=== PATIENT | female | born 1965 | race Caucasian/White ===

== ENCOUNTER 2023-09-16 13:45 | Emergency (ER) | payer MEDICARE, SELFPAY ==
[2023-09-16 14:19] VITALS: BP 119/71; PULSE 122; RESP 16; TEMP 37.7; O2SAT 95
--- NOTE | 2023-09-16 15:39 | PC.NURSE ---
Pt name called three times in waiting room with no response.
== END 2023-09-16 16:04 | disposition left against medical advice (07) ==
PROVIDERS: PCP Physician Assistant Medical
DX: M25.561 Pain in right knee (principal)
CPT/HCPCS: 99199

== ENCOUNTER 2024-03-11 13:45 | Outpatient (RCR) | payer MEDICARE, SELFPAY ==
--- NOTE | 2024-01-11 18:52 | PTOPEVAL1 ---
Assessment and note entered by Stella Reilly, PT Evaluation Information Assessment Status Evaluation Diagnosis R53.81, R53.1, Z89.431, R26.9 ICD-10 Condition Codes (PT) M25.561,Pain in left knee M25.562,M25.571,M25.572, R26.9,Weakness R53.1 Subjective Information Pt reports had transmetatarsal amputation to R foot last Mar, can walk on it with a walker only for short distances recently. Able to transfer indep at home, required 1 person assist to get in and out of the car, increased difficulty with stairs at home requiring assistance from and son. States throbbing, burning, achy and increased pressure to bilat ankles and feet, bilat knees. Pt reports wanting to work on her standing balance and walking with therapy to be able to return to indep movements at home. Reported Pain Level Pain Score 9: Self Report Assessment PT Clinical Summary Pt is a 58 yo female who presents to therapy with increased pain to BLEs specifically bilat knees and ankles, underwent transmetatarsal amputation earlier this year with residual weakness resulting to significant loss of mobility, reduced standing balance and tolerance and significant gait impairments. Pt is uses w/c mainly for household mobility at this time, and has been increasingly sedentary since after the surgery. Pt will benefit from skilled PT interventions for education, strengthening stability exercises, flexibility, balance and gait training to improve functional mobility and safe indep transfers and ambulation within her home and in the community using appropriate assistive devices as needed. Plan of Care Interventions Check Out for Orthotic/Pr,Electrical Stimulation, Gait Training,Hot Pack/Cold Pack,Manual Therapy, Neuro Re-education,Patient/Caregiver Education, Therapeutic Activities,Therapeutic Exercise, Ultrasound Other Interventions Taping PT Services Indicated Yes Treatment Frequency and 2x/wk x 10 visits Duration These treatments will address the objective and functional deficits as defined above. The patient will be advanced safely and appropriately in order for the patient to progress towards his/her prior level of function. Additional exercises will be introduced and as well as a comprehensive home exercise program upon discharge, if needed, ?to ensure carryover of functional gains achieved in the clinic. This treatment plan has been reviewed and agreement upon by the patient.
--- NOTE | 2024-01-11 18:52 | OPREHPOC ---
Outpatient Therapy Plan of Care This is a Multidisciplinary Plan of Care that may contain components documented by all disciplines (PT, OT, and ST.) PT Problem 1 PT Problem #1 Knowledge Deficit PT Goal 1 Goal / Goal Update Pt will demo good understanding of diagnosis and prognosis. Pt will perform HEPs to improve core strength, hip stability and BLE strengthening indep Target Visit 8 PT Problem 2 PT Problem #2 Pain PT Goal 1 Goal / Goal Update Pt will report 3/10 at worst to bilat knees and ankles when standing and ambulating with appropriate AD Target Visit 10 PT Problem 3 PT Problem #3 Impaired Balance PT Goal 1 Goal / Goal Update Pt will demo atleast or more score on Tinetti Balance and Gait Assessment to reduce risk for falls while using appropriate AD. Target Visit 10 PT Problem 4 PT Problem #4 Impaired Gait PT Goal 1 Goal / Goal Update Pt will demo improved gait mechanics and gait endurance to at least 50ft. or more using 2WW for safe ambulation within house distances. Target Visit 10
--- NOTE | 2024-03-03 12:56 | PTOPPROG ---
Assessment and note entered by Stella Reilly, PT Progress Information Assessment Status Progress Diagnosis R53.81, R53.1, Z89.431, R26.9 ICD-10 Condition Codes (PT) Pain in right knee M25.561,Pain in left knee M25. 562,Pain in right ankle and joints of right foot M25.571,Pain in left ankle and joints of left foot M25.572,Abnormalities of gait and mobility R26.9, Weakness R53.1 Subjective Information Pt reports her pain to BLEs continues to be excruciating at times but she feels like she is getting stronger and is able to tolerate standing. She continues to feel very unsteady and wants to continue to work on her walking. Assessment PT Clinical Summary Pt demos good progress with therapy, demos good gains in mobility, standing and ambulation tolerance. However, she continue to present with increased balance deficits and significant gait impairments. Pt will benefit from continued skilled PT for education on appropriate orthosis, further improve balance, strength and stability. Plan of Care Interventions Check Out for Orthotic/Prosthetic,Electrical Stimulation,Gait Training,Hot Pack/Cold Pack, Manual Therapy,Neuro Re-education,Patient/ Caregiver Education,Therapeutic Activities, Therapeutic Exercise,Ultrasound Other Interventions Taping PT Services Indicated Yes Treatment Frequency and 2x/wk x 10 visits Duration These treatments will address the objective and functional deficits as defined above. The patient will be advanced safely and appropriately in order for the patient to progress towards his/her prior level of function. Additional exercises will be introduced and as well as a comprehensive home exercise program upon discharge, if needed, ?to ensure carryover of functional gains achieved in the clinic. This treatment plan has been reviewed and agreement upon by the patient.
--- NOTE | 2024-03-13 13:48 | PCPTNOTE ---
Pt was a no show for today's appt. did not answer her phone when called.
--- NOTE | 2024-04-09 14:02 | PCPTNOTE ---
Admitting Provider: Attending Provider: Chiqui Samuels PA-C Patient:Zena Mcdonald Date of :1965 Patient has not returned for any further treatments since 03/11/2024, therefore (he/she) will be discharged at this time. Patient?s initial visit was on 01/11/2024 11:00 and she had a total of 8 visits, 5 no-show visits, and multiple cancellations. Thus she is being discharged at this time due to nonattendance. The goals have been partially met, as she has demonstrated ability to ambulate 80 ft in a walker at one time in session, and multiple times has ambulated shorter distances. .
== END 2024-04-09 14:45 | disposition home or self-care (01) ==
LOC: ANHHIPT 13:45
PROVIDERS: PCP Physician Assistant Medical; Visit Provider Physician Assistant Medical
DX: R26.9 Unspecified abnormalities of gait and mobility (principal); R53.81 Other malaise; R53.1 Weakness; Z89.431 Acquired absence of right foot
CPT/HCPCS: 97110; 97112; 97116; 97140; 97161; 97530; 97750